=== PATIENT | female | born 1975 | race Caucasian/White ===

== ENCOUNTER 2017-12-11 15:52 | Emergency (ER) | payer OTHER ==
[~2017-12-11] VITALS: Ht 172.7 cm; Wt 57.2 kg
[~2017-12-11 15:52] MED LIST: ANAPROX DS550 MG PO; CIPROFLOXACIN500 MG PO; CLINDAMYCIN HC300 MG PO; ROBITUSSIN AC 110 ML PO; SEROQUEL100 MG PO; TOBREX OPHTH S2.5 ML OPH; VICODIN 5/500 505 MG PO; ZOLOFT100 MG PO; ZYRTEC10 MG PO
[2017-12-11 16:00] VITALS: BP 132/67
[2017-12-11] MEDS ORDERED: GABAPENTIN800 MG PO (16:09)
[2017-12-11] MEDS ORDERED: DIAZEPAM10 M1 PO (16:10)
[2017-12-11] MEDS ORDERED: IBUPROFEN600 MG PO (16:25)
[2017-12-11] MEDS ORDERED: CLINDAMYCIN HC300 MG PO (16:25)
== END 2017-12-11 16:30 | disposition home or self-care (01) ==
LOC: ED 15:52
DX: K08.89 Other specified disorders of teeth and supporting structures (principal); Z88.0 Allergy status to penicillin; Z79.899 Other long term (current) drug therapy; Z98.51 Tubal ligation status

== ENCOUNTER 2018-11-07 13:11 | Emergency (ER) | payer OTHER ==
[~2018-11-07] VITALS: Ht 172.7 cm; Wt 49.0 kg
[~2018-11-07 13:11] MED LIST changes: +DIAZEPAM10 M1 PO; +GABAPENTIN800 MG PO; +IBUPROFEN600 MG PO
[2018-11-07 13:13] VITALS: BP 121/68
[2018-11-07] MEDS ORDERED: DOXYCYCLINE100 M3 PO (13:45)
[2018-11-07] MEDS ORDERED: Bactroban Oint22 GM T (13:45)
[2018-11-07] MEDS ORDERED: VISTARIL25 MG PO (13:45)
== END 2018-11-07 13:58 | disposition home or self-care (01) ==
LOC: ED 13:11
DX: S00.36XA Insect bite (nonvenomous) of nose, initial encounter (principal); L01.00 Impetigo, unspecified; F17.200 Nicotine dependence, unspecified, uncomplicated; Z88.0 Allergy status to penicillin; W57.XXXA Bitten or stung by nonvenomous insect and other nonvenomous arthropods, initial encounter; Y93.89 Activity, other specified; Y92.89 Other specified places as the place of occurrence of the external cause; Y99.8 Other external cause status

== ENCOUNTER → 2020-06-07 | Outpatient (CLI) | payer OTHER ==
[~2020-06-07] MED LIST changes: +Bactroban Oint22 GM T; +DOXYCYCLINE100 M3 PO; +NORCO 5-325 TA1 EACH PO; +VISTARIL25 MG PO
== END | disposition home or self-care (01) ==
LOC: COVID19 06-04 13:45
PROVIDERS: ATTEND Psychiatry & Neurology Psychiatry
DX: Z01.812 Encounter for preprocedural laboratory examination (principal); S52.542A Smith's fracture of left radius, initial encounter for closed fracture; Z20.828 Contact with and (suspected) exposure to other viral communicable diseases; X58.XXXA Exposure to other specified factors, initial encounter; Y93.89 Activity, other specified; Y92.89 Other specified places as the place of occurrence of the external cause; Y99.8 Other external cause status

== ENCOUNTER → 2020-06-10 | Day surgery (SDC) | payer OTHER ==
[2020-06-09 13:48] VITALS: BP 125/67
[~2020-06-10] VITALS: Ht 172.7 cm; Wt 52.2 kg
[2020-06-10 08:40] VITALS: BP 113/70
[2020-06-10 11:22] VITALS: BP 113/65
[2020-06-10 11:35] VITALS: BP 109/72
[2020-06-10 11:50] VITALS: BP 125/80
[2020-06-10 12:03] VITALS: BP 112/66
[2020-06-10 12:20] VITALS: BP 118/84
== END | disposition home or self-care (01) ==
LOC: CANPRESDC → SDC 06-09 13:15
PROVIDERS: ATTEND Psychiatry & Neurology Psychiatry
DX: S52.572A Other intraarticular fracture of lower end of left radius, initial encounter for closed fracture (principal); S52.542A Smith's fracture of left radius, initial encounter for closed fracture; S52.122A Displaced fracture of head of left radius, initial encounter for closed fracture; F41.9 Anxiety disorder, unspecified; Z88.0 Allergy status to penicillin; Z88.5 Allergy status to narcotic agent; X58.XXXA Exposure to other specified factors, initial encounter; Y93.89 Activity, other specified; Y92.89 Other specified places as the place of occurrence of the external cause; Y99.8 Other external cause status; F32.9 Major depressive disorder, single episode, unspecified; Z83.3 Family history of diabetes mellitus; Z82.49 Family history of ischemic heart disease and other diseases of the circulatory system; Z82.3 Family history of stroke

== ENCOUNTER → 2020-06-23 | Outpatient (CLI) | payer OTHER | END | disposition home or self-care (01) | LOC: RAD 10:16 | PROVIDERS: ATTEND Psychiatry & Neurology Psychiatry | DX: S52.542A Smith's fracture of left radius, initial encounter for closed fracture (principal); X58.XXXA Exposure to other specified factors, initial encounter; Y93.89 Activity, other specified; Y92.89 Other specified places as the place of occurrence of the external cause; Y99.8 Other external cause status ==

== ENCOUNTER → 2020-07-21 | Outpatient (CLI) | payer OTHER | END | disposition home or self-care (01) | LOC: ORTHO 00:30 | PROVIDERS: ATTEND Orthopaedic Surgery | DX: S52.542D Smith's fracture of left radius, subsequent encounter for closed fracture with routine healing (principal); X58.XXXD Exposure to other specified factors, subsequent encounter ==

== ENCOUNTER → 2020-08-06 | Outpatient (CLI) | payer OTHER | END | disposition home or self-care (01) | LOC: ORTHO 00:44 | PROVIDERS: ATTEND Orthopaedic Surgery | DX: S52.542D Smith's fracture of left radius, subsequent encounter for closed fracture with routine healing (principal); X58.XXXD Exposure to other specified factors, subsequent encounter ==

== ENCOUNTER → 2022-07-25 | Outpatient (CLI) | payer OTHER | END | disposition home or self-care (01) | LOC: RAD 08:02 | PROVIDERS: ATTEND Orthopaedic Surgery | DX: M18.11 Unilateral primary osteoarthritis of first carpometacarpal joint, right hand (principal); M25.841 Other specified joint disorders, right hand ==

== ENCOUNTER 2023-03-01 22:59 | Emergency (ER) | payer SELFPAY ==
[~2023-03-01] VITALS: Ht 172.7 cm; Wt 47.6 kg
[2023-03-01 23:10] VITALS: BP 146/88
[2023-03-02] MEDS ORDERED: CLINDAMYCIN HC300 MG PO (00:13)
== END 2023-03-02 00:25 | disposition home or self-care (01) ==
LOC: ED 22:59
DX: K04.7 Periapical abscess without sinus (principal); F17.200 Nicotine dependence, unspecified, uncomplicated; Z91.048 Other nonmedicinal substance allergy status; Z88.0 Allergy status to penicillin

== ENCOUNTER 2023-11-28 13:20 | Emergency (ER) | payer MEDICAID ==
[~2023-11-28] VITALS: Ht 172.7 cm; Wt 52.2 kg
[2023-11-28 13:37] VITALS: BP 120/73
== END 2023-11-28 15:15 | disposition left against medical advice (07) ==
LOC: ED 13:20
DX: R60.0 Localized edema (principal); F32.A Depression, unspecified; Z88.0 Allergy status to penicillin; Z88.8 Allergy status to other drugs, medicaments and biological substances; Z53.21 Procedure and treatment not carried out due to patient leaving prior to being seen by health care provider

== ENCOUNTER 2024-09-17 12:43 | Emergency (ER) | payer SELFPAY ==
[~2024-09-17] VITALS: Ht 172.7 cm; Wt 61.2 kg
[2024-09-17] MEDS ORDERED: Lidocaine Hydrochloride 2% 10 ML AMP SC ONE (14:00)
[2024-09-17 14:02] VITALS: BP 130/98
[2024-09-17] MEDS ORDERED: NAPROSYN500 MG PO (14:40)
== END 2024-09-17 16:31 | disposition home or self-care (01) ==
LOC: ED 12:43
DX: S63.282A Dislocation of proximal interphalangeal joint of right middle finger, initial encounter (principal); Z91.048 Other nonmedicinal substance allergy status; Z88.0 Allergy status to penicillin; Z86.73 Personal history of transient ischemic attack (TIA), and cerebral infarction without residual deficits; W51.XXXA Accidental striking against or bumped into by another person, initial encounter; Y93.89 Activity, other specified; Y92.89 Other specified places as the place of occurrence of the external cause; Y99.8 Other external cause status